=== PATIENT | male | born 1950 | race Caucasian/White ===

== ENCOUNTER → 2022-03-10 13:25 | Outpatient (BNVA) | payer MEDICARE, SELFPAY | PROVIDERS: Visit Provider Surgery | DX: Z12.11 Encounter for screening for malignant neoplasm of colon (principal) | CPT/HCPCS: 99203 ==

== ENCOUNTER 2022-05-11 06:28 | Day surgery (SDC) | payer MEDICARE, SELFPAY ==
[2022-05-09 12:06] VITALS: BMI 31.9
[2022-05-11 07:14] VITALS: BP 126/91; PULSE 78; RESP 18; TEMP 36.1; O2SAT 97
[2022-05-11] MEDS: sodium chloride 0.9% 1,000 ML 30 ML IV (07:26)
--- NOTE | 2022-05-11 07:34 | ANES.PREANE2 ---
Pre-Anesthetic Assessment Height/Weight: Height 1.68 m Weight 89.811 kg Temp Pulse Resp BP Pulse Ox O2 Del Method 96.9 F L 78 18 126/91 97 05/11/22 07:14 05/11/22 07:14 05/11/22 07:14 05/11/22 07:14 05/11/22 07:14 05/11/22 07:14 Preop Diagnosis: Screening Colonoscopy Operation Date: 05/11/22 08:15 Proposed Procedures p Colonoscopy 18042,Z12.11(Not Applicable) - Von Russell DO Familial anesthetic complications: None Was Beta Ashley taken within 24 hours: N/A Was Clonidine taken within 24 hours: N/A Last intake: Intake Last Liquid Date 05/10/22 Last Liquid Time 22:00 Last Solid Date 05/09/22 Last Solid Time 17:30 Social No alcohol and No tobacco Exam alert, oriented x 3, clear to auscultation bilaterally and regular rate & rhythm Airway Submandibular: within normal limits Cervical ROM: within normal limits Mallampati: Class II Dentition: full History/ROS No significant history except as noted and No significant complaints Pulmonary None reported CV/HEM None reported None reported Hepatic None reported GI Gastroesophageal Reflux Disease (Food dependent) Metabolic None reported Musc/skel Lower Back Pain, Osteoarthritis/DJD and None reported Neuropsych Anxiety and Transient Ischemic Attack (January 2022 in [place]. Went to the hospital but no intervention. Was told the vessels in his head were enlarged and it was due to stress.) Anesthetic Plan ASA status: 2 Anesthesia: Anesthesia Evaluation, General and MAC Risk of > 500 ml blood loss (7ml/kg in children): No Medications/Allergies Home Medications Medication Instructions Recorded Confirmed Last Taken Type aspirin 81 mg tablet 81 mg PO DAILY 03/10/22 05/11/22 05/09/22 History Lactobacillus acidophilus 10 10,000 mmu cells PO DAILY 05/09/22 05/11/22 05/09/22 History billion cell capsule (Probiotic) calcium polycarbophil 625 mg 625 mg PO DAILY 05/09/22 05/11/22 05/09/22 History tablet (FiberCon) cholecalciferol (vitamin D3) 25 25 mcg PO DAILY 05/09/22 05/11/22 05/09/22 History mcg (1,000 unit) capsule (Vitamin D3) cyanocobalamin (vitamin B-12) 1,000 mcg PO DAILY 05/09/22 05/11/22 05/09/22 History 1,000 mcg tablet (Vitamin B-12) digestive enzymes 1 cap PO DAILY 05/09/22 05/11/22 05/09/22 History magnesium 200 mg tablet 400 mg PO DAILY 05/09/22 05/11/22 05/09/22 History omega-3 fatty acids 500 mg PO DAILY 05/09/22 05/11/22 05/09/22 History vitamin B complex 1 tab PO DAILY 05/09/22 05/11/22 05/09/22 History zinc 50 mg tablet 50 mg PO DAILY 05/09/22 05/11/22 05/09/22 History Allergies Allergy/AdvReac Type Severity Reaction Status Date / Time codeine Allergy irritated Verified 05/11/22 07:14 Penicillins Allergy hives Verified 05/11/22 07:14 Current Medications Generic Name Dose Route Start Last Admin Trade Name Freq PRN Reason Stop Dose Admin Sodium Chloride 1,000 mls @ 30 mls/hr 05/11/22 07:00 05/11/22 07:26 Sodium Chloride 0.9% IV 05/12/22 06:59 30 mls/hr .Q24H LUISA Administration PFSH Anesthesia Medical History (Updated 03/10/22 @ 13:46 by Von Russell DO) Colon cancer screening Surgical History Hx of colonoscopy with polypectomy Family History Denies family history of Cancer Social History Smoking and tobacco status: former smoker Data Anesthesia Cardiac Studies: No Data to Display
--- NOTE | 2022-05-11 08:25 | P.HP_ITS ---
Providers/Chief Complaint Chief Complaint: encounter for screening for malignant neoplasm History of Present Illness Blake Ocampo is a 71 year old male here for colonoscopy Medications/Allergies Home Medications Medication Instructions Recorded Confirmed Last Taken Type aspirin 81 mg tablet 81 mg PO DAILY 03/10/22 05/11/22 05/09/22 History Lactobacillus acidophilus 10 10,000 mmu cells PO DAILY 05/09/22 05/11/22 05/09/22 History billion cell capsule (Probiotic) calcium polycarbophil 625 mg 625 mg PO DAILY 05/09/22 05/11/22 05/09/22 History tablet (FiberCon) cholecalciferol (vitamin D3) 25 25 mcg PO DAILY 05/09/22 05/11/22 05/09/22 History mcg (1,000 unit) capsule (Vitamin D3) cyanocobalamin (vitamin B-12) 1,000 mcg PO DAILY 05/09/22 05/11/22 05/09/22 History 1,000 mcg tablet (Vitamin B-12) digestive enzymes 1 cap PO DAILY 05/09/22 05/11/22 05/09/22 History magnesium 200 mg tablet 400 mg PO DAILY 05/09/22 05/11/22 05/09/22 History omega-3 fatty acids 500 mg PO DAILY 05/09/22 05/11/22 05/09/22 History vitamin B complex 1 tab PO DAILY 05/09/22 05/11/22 05/09/22 History zinc 50 mg tablet 50 mg PO DAILY 05/09/22 05/11/22 05/09/22 History Allergies Allergy/AdvReac Type Severity Reaction Status Date / Time codeine Allergy irritated Verified 05/11/22 07:14 Penicillins Allergy hives Verified 05/11/22 07:14 PFSH Acute PFSH: Medical History (Updated 03/10/22 @ 13:46 by Von Russell DO) Colon cancer screening Surgical History Hx of colonoscopy with polypectomy Family History Denies family history of Cancer Social History Smoking and tobacco status: former smoker Vitals/I&O/Wt Last Vital Signs Temp 96.9 F L 05/11/22 07:14 Pulse 78 05/11/22 07:14 Resp 18 05/11/22 07:14 BP 126/91 05/11/22 07:14 Pulse Ox 97 05/11/22 07:14 O2 Del Method 05/11/22 07:14 Weight last 48 hrs Weight 198 lb A&P Assessment and plan (1) Colon cancer screening: Plan Colonoscopy Attestations Medical Necessity Statement*: Home Coding Level of Care Code 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
[2022-05-11 08:49] VITALS: BP 107/78; PULSE 67; RESP 14; TEMP 36.3; O2SAT 93
[2022-05-11 08:57] VITALS: BP 122/86; PULSE 67; RESP 18; O2SAT 98
--- NOTE | 2022-05-11 15:31 | ANE.PACU2 ---
Inpatient post-anesthesia follow up: Airway intact: Yes Vital signs: Temperature 97.3 F Pulse Rate 67 Respiratory Rate 18 Blood Pressure 122/86 Pulse Oximetry 98 Oxygen Delivery Me thod Nasal Cannula Oxygen Flow Rate 4 Fraction of Inspir ed Oxygen Hydration adequate: Yes Nausea and vomiting: No Pain level: 1 Mental status: Baseline
== END 2022-05-11 09:24 | disposition home or self-care (01) ==
PROVIDERS: Visit Provider Surgery
PROC: 0DJD8ZZ Inspection of Lower Intestinal Tract, Via Natural or Artificial Opening Endoscopic (ICD-10-PCS; CPT 45378; principal; 2022-05-11 08:15)
DX: Z12.11 Encounter for screening for malignant neoplasm of colon (principal); K64.8 Other hemorrhoids; Z79.82 Long term (current) use of aspirin; Z87.891 Personal history of nicotine dependence; K21.9 Gastro-esophageal reflux disease without esophagitis; M19.90 Unspecified osteoarthritis, unspecified site; F41.9 Anxiety disorder, unspecified; Z86.73 Personal history of transient ischemic attack (TIA), and cerebral infarction without residual deficits
CPT/HCPCS: 45378; G0121; J2704; J7030

== ENCOUNTER 2022-08-01 13:32 | Outpatient (CLI) | payer MEDICARE, SELFPAY ==
[2022-08-01 14:23] LABS: PSA Screen - Urology 4.44 ng/mL (0-4)
== END 2022-08-01 13:33 | disposition home or self-care (01) ==
LOC: LAB 13:35
PROVIDERS: Visit Provider Urology
DX: Z12.5 Encounter for screening for malignant neoplasm of prostate (principal); R39.89 Other symptoms and signs involving the genitourinary system; R97.20 Elevated prostate specific antigen [PSA]
CPT/HCPCS: 36415; 51741; 51798; 81003; 99203; G0103

== ENCOUNTER 2023-01-24 09:29 | Outpatient (CLI) | payer MEDICARE, SELFPAY ==
[2023-01-24 10:44] LABS: Prostate Specific AG Urology 4.33 ng/mL (0-4)
== END 2023-01-24 09:30 | disposition home or self-care (01) ==
LOC: LAB 09:34
PROVIDERS: PCP Family Medicine; Visit Provider Urology
DX: R97.20 Elevated prostate specific antigen [PSA] (principal)
CPT/HCPCS: 36415; 84153

== ENCOUNTER → 2023-02-02 11:33 | Outpatient (BNVA) | payer MEDICARE, SELFPAY | PROVIDERS: PCP Family Medicine; Visit Provider Urology | DX: R97.20 Elevated prostate specific antigen [PSA] (principal); R39.89 Other symptoms and signs involving the genitourinary system | CPT/HCPCS: 81003; 99213 ==

== ENCOUNTER → 2023-10-16 14:49 | Outpatient (BNVA) | payer MEDICARE, SELFPAY | PROVIDERS: PCP Family Medicine; Visit Provider Clinical Nurse Specialist Adult Health | DX: R30.0 Dysuria (principal) | CPT/HCPCS: 81000; 87077; 87086; 87184 ==

== ENCOUNTER → 2023-12-19 10:29 | Outpatient (BNVA) | payer MEDICARE, SELFPAY | PROVIDERS: PCP Family Medicine; Visit Provider Family Medicine | DX: Z00.00 Encounter for general adult medical examination without abnormal findings (principal); R97.20 Elevated prostate specific antigen [PSA]; E11.9 Type 2 diabetes mellitus without complications | CPT/HCPCS: 80053; 80061; 82607; 83036; 83735; 84153; 84443; 85025 ==

== ENCOUNTER → 2024-07-02 09:30 | Outpatient (BNVA) | payer MEDICARE, SELFPAY | PROVIDERS: PCP Family Medicine; Visit Provider Family Medicine | DX: R97.20 Elevated prostate specific antigen [PSA] (principal); R53.83 Other fatigue; R39.89 Other symptoms and signs involving the genitourinary system; Z00.00 Encounter for general adult medical examination without abnormal findings; R03.0 Elevated blood-pressure reading, without diagnosis of hypertension | CPT/HCPCS: 84153; 84403 ==

== ENCOUNTER → 2024-07-08 14:10 | Outpatient (BNVA) | payer MEDICARE, SELFPAY | PROVIDERS: PCP Family Medicine; Visit Provider Family Medicine | DX: R97.20 Elevated prostate specific antigen [PSA] (principal); R79.89 Other specified abnormal findings of blood chemistry | CPT/HCPCS: 83001; 84153; 84402; 84403 ==

== ENCOUNTER → 2024-10-29 10:19 | Outpatient (BNVA) | payer MEDICARE, SELFPAY | PROVIDERS: PCP Family Medicine; Visit Provider Family Medicine | DX: R97.20 Elevated prostate specific antigen [PSA] (principal); R79.89 Other specified abnormal findings of blood chemistry | CPT/HCPCS: 84153; 84403 ==

== ENCOUNTER → 2025-01-30 08:26 | Outpatient (BNVA) | payer MEDICARE, SELFPAY | PROVIDERS: PCP Family Medicine; Visit Provider Family Medicine | DX: R97.20 Elevated prostate specific antigen [PSA] (principal); R53.83 Other fatigue; R79.89 Other specified abnormal findings of blood chemistry | CPT/HCPCS: 80053; 80061; 82306; 82607; 83036; 84153; 85025; 86140 ==

== ENCOUNTER → 2025-04-01 12:26 | Outpatient (BNVA) | payer MEDICARE, SELFPAY | PROVIDERS: PCP Family Medicine; Visit Provider Family Medicine | DX: N39.0 Urinary tract infection, site not specified (principal); R39.89 Other symptoms and signs involving the genitourinary system | CPT/HCPCS: 81000; 87086 ==